=== PATIENT | male | born 1945 | race Caucasian/White ===

== ENCOUNTER 2017-03-04 07:43 | Outpatient (CLI) | payer MEDICARE ==
[2017-03-04 08:39] LABS: ALT (SGPT) 23 U/L (8-55); AST (SGOT) 47 U/L (5-34); Albumin 3.9 g/dL (3.4-4.8); Alkaline Phosphatase 76 U/L (40-150); Anion Gap 13 mmol/L (10-20); BUN (Urea Nitrogen) 12 mg/dL (8.4-25.7); Bilirubin, Direct 0.3 mg/dL (0.1-0.3); Bilirubin, Total 0.7 mg/dL (0.2-1.2); Calc. Creatinine Clearance 0 mL/min (70-130); Carbon Dioxide 25 mmol/L (23-31); Cardiac Risk 2.8 (Less than 4.5); Chloride 106 mmol/L (98-107); Cholesterol 145 mg/dl (< 200 Desired); Estimated GFR-MDRD 84; Glucose 96 mg/dL (83-110); HDL Cholesterol 52 mg/dL (>60 Neg Risk); LDL Cholesterol, Calculated 42 mg/dL; Potassium 4.1 mmol/L (3.5-5.1); Protein, Total 7.2 g/dL (5.8-8.1); Sodium 140 mmol/L (136-145); Triglycerides 254 mg/dL (Less than 150)
[2017-03-04 11:29] LABS: Anisocytosis SLIGHT = 6-15 cells (100X) (0-5/hpf); Band 2 % (5-11); Eosinophils 2 % (0-10); Lymphocytes 32 % (21-51); MDiff Complete? YES; Macrocytosis SLIGHT = 6-15 cells (100X) (0-5/hpf); Mean Corpuscular HGB CONC 34.1 g/dL (32.0-36.0); Mean Corpuscular Hemoglobin 37.2 pg (27.0-31.0); Mean Corpuscular Volume 109.2 fl (80.0-94.0); Mean Platelet Volume 9.3 fL (7.4-10.4); Monocytes 6 % (0-10); Neutrophil 58 % (42-75); Platelet Count 161 thou/uL (130-400); RBC Distribution Width 13.1 % (11.5-14.5); Red Blood Cell (RBC) Count 4.29 mill/uL (4.70-6.10)
== END 2017-03-04 07:44 | disposition home or self-care (01) ==
LOC: MADLABBHPM 07:43
PROVIDERS: ATTEND Family Medicine
DX: E78.5 Hyperlipidemia, unspecified (principal); I10 Essential (primary) hypertension; M19.91 Primary osteoarthritis, unspecified site
CPT/HCPCS: 36415; 80048; 80061; 80076; 84443; 85025

== ENCOUNTER 2021-05-28 14:32 | Inpatient (IN) | payer MEDICARE, SELFPAY ==
[2021-05-28] MEDS ORDERED: Nystatin Powder 15 GM BOT TOP PRN (20:04)
[2021-05-28] MEDS ORDERED: Cyclobenzaprine 10 MG TAB PO PRN (20:21)
[2021-05-28] MEDS: Gabapentin 300 MG CAP PO SCH (21:04)
[2021-05-28] MEDS: hydrALAZINE 25 MG TAB PO SCH (21:06)
[2021-05-28] MEDS: Rosuvastatin 10 MG TAB PO SCH (21:06)
[2021-05-28] MEDS: Apixaban 5 MG TAB PO SCH (21:06)
[2021-05-28] MEDS: Metoprolol Tartrate 25 MG TAB PO SCH (21:06)
[2021-05-28] MEDS: Transdermal Patch Removal TOP SCH (21:07)
[2021-05-28 21:14] LABS: SARS-CoV-2 NAA Rapid Test Not Detected (NotDetected)
[2021-05-29 05:48] LABS: ALT (SGPT) 14 U/L (8-55); AST (SGOT) 48 U/L (5-34); Albumin 2.7 g/dL (3.4-4.8); Alkaline Phosphatase 89 U/L (40-110); Anion Gap 12 mmol/L (10-20); BUN (Urea Nitrogen) 12 mg/dL (8.4-25.7); Bilirubin, Total 0.5 mg/dL (0.2-1.2); Calc. Creatinine Clearance 102 mL/min (70-130); Calcium 8.8 mg/dL (7.8-10.44); Carbon Dioxide 29 mmol/L (23-31); Chloride 105 mmol/L (98-107); Globulin 3.9 g/dL (2.4-3.5); Glucose 95 mg/dL (83-110); Protein, Total 6.6 g/dL (5.8-8.1); Sodium 142 mmol/L (136-145)
[2021-05-29 05:51] LABS: #Basophils 0.1 thou/uL (0.0-0.2); #Eosinphils 0.2 thou/uL (0.0-0.7); #Lymphocytes 2.1 thou/uL (1.20-3.40); #Monocytes 0.7 thou/uL (0.11-0.59); #Neutrophils 3.2 thou/uL (1.40-6.50); %Eosinophils 3.6 % (0.0-10.0); %Lymphocytes 33.1 % (21.0-51.0); %Monocytes 11.3 % (0.0-10.0); Hemoglobin 11.8 g/dL (14.0-18.0); MDiff Complete? YES; Macrocytosis MODERATE=16-30 cells (100X) (0-5/hpf); Mean Corpuscular HGB CONC 30.8 g/dL (32.0-36.0); Mean Corpuscular Hemoglobin 34.9 pg (27.0-31.0); Mean Corpuscular Volume 113.2 fL (78.0-98.0); Mean Platelet Volume 8.2 fL (7.4-10.4); Platelet Count 266 thou/uL (130-400); RBC Distribution Width 13.6 % (11.5-14.5); Red Blood Cell (RBC) Count 3.38 mill/uL (4.70-6.10); Stomatocytes SLIGHT = 2-5 cells (100X) (0-1/hpf); White Blood Cell (WBC) Count 6.3 thou/uL (4.8-10.8)
[2021-05-29] MEDS: Folic Acid 1 MG TAB PO SCH (08:06)
[2021-05-29] MEDS: Metoprolol Tartrate 25 MG TAB PO SCH ×2 (08:06→21:36)
[2021-05-29] MEDS: Aspirin 81 mg Enteric Coated Tablet PO SCH (08:08)
[2021-05-29] MEDS: Apixaban 5 MG TAB PO SCH ×2 (08:08→21:36)
[2021-05-29] MEDS: Gabapentin 300 MG CAP PO SCH ×3 (08:08→21:35)
[2021-05-29] MEDS: hydrALAZINE 25 MG TAB PO SCH ×2 (08:09→21:35)
[2021-05-29] MEDS: Thiamine 100 MG TAB PO SCH (08:09)
[2021-05-29] MEDS: Losartan Potassium 50 MG TAB PO SCH (08:09)
[2021-05-29] MEDS: Amlodipine 5 MG TAB PO SCH (08:09)
[2021-05-29] MEDS: Multivit, Therapeutic 1 TAB PO SCH (08:10)
[2021-05-29] MEDS: Lidocaine 5% Patch TD SCH (08:12)
[2021-05-29] MEDS: Rosuvastatin 10 MG TAB PO SCH (21:36)
[2021-05-29] MEDS: Transdermal Patch Removal TOP SCH (21:37)
[2021-05-30] MEDS: Thiamine 100 MG TAB PO SCH (09:40)
[2021-05-30] MEDS: Losartan Potassium 50 MG TAB PO SCH (09:41)
[2021-05-30] MEDS: Gabapentin 300 MG CAP PO SCH ×4 (09:41→20:12)
[2021-05-30] MEDS: Aspirin 81 mg Enteric Coated Tablet PO SCH (09:42)
[2021-05-30] MEDS: Metoprolol Tartrate 25 MG TAB PO SCH ×2 (09:42→20:12)
[2021-05-30] MEDS: Amlodipine 5 MG TAB PO SCH (09:42)
[2021-05-30] MEDS: Folic Acid 1 MG TAB PO SCH (09:42)
[2021-05-30] MEDS: Apixaban 5 MG TAB PO SCH ×2 (09:42→20:13)
[2021-05-30] MEDS: Multivit, Therapeutic 1 TAB PO SCH (09:42)
[2021-05-30] MEDS: Lidocaine 5% Patch TD SCH (09:43)
[2021-05-30] MEDS: Transdermal Patch Removal TOP SCH (20:11)
[2021-05-30] MEDS: Rosuvastatin 10 MG TAB PO SCH (20:13)
[2021-05-31] MEDS: Multivit, Therapeutic 1 TAB PO SCH (09:50)
[2021-05-31] MEDS: Aspirin 81 mg Enteric Coated Tablet PO SCH (09:50)
[2021-05-31] MEDS: Gabapentin 300 MG CAP PO SCH ×3 (09:50→21:11)
[2021-05-31] MEDS: Lidocaine 5% Patch TD SCH (09:50)
[2021-05-31] MEDS: Apixaban 5 MG TAB PO SCH ×2 (09:50→21:11)
[2021-05-31] MEDS: Folic Acid 1 MG TAB PO SCH (09:50)
[2021-05-31] MEDS: Amlodipine 5 MG TAB PO SCH (09:51)
[2021-05-31] MEDS: Thiamine 100 MG TAB PO SCH (09:51)
[2021-05-31] MEDS: Metoprolol Tartrate 25 MG TAB PO SCH ×2 (09:51→21:12)
[2021-05-31 10:55] VITALS: BMI 43.5
[2021-05-31] MEDS: Losartan Potassium 50 MG TAB PO SCH (12:03)
[2021-05-31] MEDS: Rosuvastatin 10 MG TAB PO SCH (21:13)
[2021-05-31] MEDS: Transdermal Patch Removal TOP SCH (21:15)
[2021-06-01] MEDS: Apixaban 5 MG TAB PO SCH ×2 (08:05→20:32)
[2021-06-01] MEDS: Amlodipine 5 MG TAB PO SCH (08:05)
[2021-06-01] MEDS: Thiamine 100 MG TAB PO SCH (08:05)
[2021-06-01] MEDS: Multivit, Therapeutic 1 TAB PO SCH (08:05)
[2021-06-01] MEDS: Aspirin 81 mg Enteric Coated Tablet PO SCH (08:06)
[2021-06-01] MEDS: Folic Acid 1 MG TAB PO SCH (08:06)
[2021-06-01] MEDS: Gabapentin 300 MG CAP PO SCH ×3 (08:06→20:32)
[2021-06-01] MEDS: Metoprolol Tartrate 25 MG TAB PO SCH ×2 (08:06→20:32)
[2021-06-01] MEDS: Losartan Potassium 50 MG TAB PO SCH (10:59)
[2021-06-01] MEDS: Lidocaine 5% Patch TD SCH (11:01)
[2021-06-01] MEDS: Rosuvastatin 10 MG TAB PO SCH (20:32)
[2021-06-01] MEDS: Transdermal Patch Removal TOP SCH (20:33)
[2021-06-02] MEDS: Multivit, Therapeutic 1 TAB PO SCH (09:16)
[2021-06-02] MEDS: Folic Acid 1 MG TAB PO SCH (09:16)
[2021-06-02] MEDS: Metoprolol Tartrate 25 MG TAB PO SCH ×2 (09:16→20:43)
[2021-06-02] MEDS: Thiamine 100 MG TAB PO SCH (09:16)
[2021-06-02] MEDS: Gabapentin 300 MG CAP PO SCH ×3 (09:16→20:40)
[2021-06-02] MEDS: Apixaban 5 MG TAB PO SCH ×2 (09:16→20:40)
[2021-06-02] MEDS: Amlodipine 5 MG TAB PO SCH (09:16)
[2021-06-02] MEDS: Aspirin 81 mg Enteric Coated Tablet PO SCH (09:16)
[2021-06-02] MEDS: Lidocaine 5% Patch TD SCH (09:17)
[2021-06-02] MEDS: Losartan Potassium 50 MG TAB PO SCH (12:20)
[2021-06-02] MEDS: Rosuvastatin 10 MG TAB PO SCH (20:42)
[2021-06-02] MEDS: Transdermal Patch Removal TOP SCH (20:44)
[2021-06-03] MEDS: Amlodipine 5 MG TAB PO SCH (08:30)
[2021-06-03] MEDS: Multivit, Therapeutic 1 TAB PO SCH (08:30)
[2021-06-03] MEDS: Apixaban 5 MG TAB PO SCH ×2 (08:30→21:12)
[2021-06-03] MEDS: Thiamine 100 MG TAB PO SCH (08:30)
[2021-06-03] MEDS: Folic Acid 1 MG TAB PO SCH (08:30)
[2021-06-03] MEDS: Aspirin 81 mg Enteric Coated Tablet PO SCH (08:30)
[2021-06-03] MEDS: Metoprolol Tartrate 25 MG TAB PO SCH ×2 (08:30→21:13)
[2021-06-03] MEDS: Lidocaine 5% Patch TD SCH (08:31)
[2021-06-03] MEDS: Gabapentin 300 MG CAP PO SCH ×3 (08:31→21:12)
[2021-06-03] MEDS: Losartan Potassium 50 MG TAB PO SCH (11:39)
[2021-06-03] MEDS: Rosuvastatin 10 MG TAB PO SCH (21:14)
[2021-06-03] MEDS: Transdermal Patch Removal TOP SCH (21:22)
[2021-06-04] MEDS ORDERED: Lidocaine 5% Patch TD PRN (08:11)
[2021-06-04] MEDS: Losartan Potassium 50 MG TAB PO SCH (08:43)
[2021-06-04] MEDS: Gabapentin 300 MG CAP PO SCH ×3 (08:43→20:07)
[2021-06-04] MEDS: Apixaban 5 MG TAB PO SCH ×2 (08:43→20:06)
[2021-06-04] MEDS: Aspirin 81 mg Enteric Coated Tablet PO SCH (08:43)
[2021-06-04] MEDS: Multivit, Therapeutic 1 TAB PO SCH (08:44)
[2021-06-04] MEDS: Metoprolol Tartrate 25 MG TAB PO SCH ×2 (08:44→20:07)
[2021-06-04] MEDS: Amlodipine 5 MG TAB PO SCH (08:44)
[2021-06-04] MEDS: Acetaminophen 325 MG TAB PO PRN (08:45)
[2021-06-04] MEDS: Folic Acid 1 MG TAB PO SCH (08:45)
[2021-06-04] MEDS: Thiamine 100 MG TAB PO SCH (08:45)
[2021-06-04] MEDS: Rosuvastatin 10 MG TAB PO SCH (20:06)
[2021-06-04] MEDS: Transdermal Patch Removal TOP SCH (20:08)
[2021-06-05 05:29] LABS: Hemoglobin 12.1 g/dL (14.0-18.0); Platelet Count 273 thou/uL (130-400)
[2021-06-05] MEDS: Aspirin 81 mg Enteric Coated Tablet PO SCH (09:32)
[2021-06-05] MEDS: Metoprolol Tartrate 25 MG TAB PO SCH ×2 (09:33→21:14)
[2021-06-05] MEDS: Folic Acid 1 MG TAB PO SCH (09:33)
[2021-06-05] MEDS: Thiamine 100 MG TAB PO SCH (09:33)
[2021-06-05] MEDS: Amlodipine 5 MG TAB PO SCH (09:33)
[2021-06-05] MEDS: Gabapentin 300 MG CAP PO SCH ×3 (09:33→21:14)
[2021-06-05] MEDS: Apixaban 5 MG TAB PO SCH ×2 (09:33→21:14)
[2021-06-05] MEDS: Losartan Potassium 50 MG TAB PO SCH (09:33)
[2021-06-05] MEDS: Multivit, Therapeutic 1 TAB PO SCH (09:33)
[2021-06-05] MEDS: Acetaminophen 325 MG TAB PO PRN ×2 (16:11→21:15)
[2021-06-05] MEDS: Rosuvastatin 10 MG TAB PO SCH (21:15)
[2021-06-05] MEDS: Transdermal Patch Removal TOP SCH (21:15)
[2021-06-06] MEDS: Gabapentin 300 MG CAP PO SCH ×3 (09:18→21:01)
[2021-06-06] MEDS: Aspirin 81 mg Enteric Coated Tablet PO SCH (09:18)
[2021-06-06] MEDS: Multivit, Therapeutic 1 TAB PO SCH (09:19)
[2021-06-06] MEDS: Losartan Potassium 50 MG TAB PO SCH (09:19)
[2021-06-06] MEDS: Amlodipine 5 MG TAB PO SCH (09:19)
[2021-06-06] MEDS: Folic Acid 1 MG TAB PO SCH (09:19)
[2021-06-06] MEDS: Apixaban 5 MG TAB PO SCH ×2 (09:20→21:01)
[2021-06-06] MEDS: Metoprolol Tartrate 25 MG TAB PO SCH ×2 (09:20→21:01)
[2021-06-06] MEDS: Thiamine 100 MG TAB PO SCH (09:20)
[2021-06-06 12:26] LABS: SARS-CoV-2 PCR by NAA Not Detected (NotDetected)
[2021-06-06] MEDS: Acetaminophen 325 MG TAB PO PRN (21:02)
[2021-06-06] MEDS: Rosuvastatin 10 MG TAB PO SCH (21:02)
[2021-06-06] MEDS: Transdermal Patch Removal TOP SCH (21:12)
[2021-06-07] MEDS: Multivit, Therapeutic 1 TAB PO SCH (08:43)
[2021-06-07] MEDS: Apixaban 5 MG TAB PO SCH ×2 (08:43→20:23)
[2021-06-07] MEDS: Gabapentin 300 MG CAP PO SCH ×3 (08:43→20:24)
[2021-06-07] MEDS: Amlodipine 5 MG TAB PO SCH (08:43)
[2021-06-07] MEDS: Folic Acid 1 MG TAB PO SCH (08:44)
[2021-06-07] MEDS: Aspirin 81 mg Enteric Coated Tablet PO SCH (08:44)
[2021-06-07] MEDS: Metoprolol Tartrate 25 MG TAB PO SCH ×2 (08:44→20:25)
[2021-06-07] MEDS: Losartan Potassium 50 MG TAB PO SCH (08:44)
[2021-06-07] MEDS: Thiamine 100 MG TAB PO SCH (08:44)
[2021-06-07] MEDS: Rosuvastatin 10 MG TAB PO SCH (20:27)
[2021-06-07] MEDS: Transdermal Patch Removal TOP SCH (20:28)
[2021-06-08 07:51] VITALS: TEMP 97.8
[2021-06-08] MEDS: Gabapentin 300 MG CAP PO SCH (10:19)
[2021-06-08] MEDS: Aspirin 81 mg Enteric Coated Tablet PO SCH (10:19)
[2021-06-08] MEDS: Folic Acid 1 MG TAB PO SCH (10:19)
[2021-06-08] MEDS: Multivit, Therapeutic 1 TAB PO SCH (10:19)
[2021-06-08] MEDS: Amlodipine 5 MG TAB PO SCH (10:19)
[2021-06-08] MEDS: Metoprolol Tartrate 25 MG TAB PO SCH (10:20)
[2021-06-08] MEDS: Apixaban 5 MG TAB PO SCH (10:20)
[2021-06-08] MEDS: Thiamine 100 MG TAB PO SCH (10:20)
[2021-06-08] MEDS: Losartan Potassium 50 MG TAB PO SCH (10:21)
[2021-06-08 14:17] VITALS: BP 117/80
== END 2021-06-08 15:18 | disposition home health service (06) | DRG 947 ==
LOC: MADMS 16:17
PROVIDERS: ADMIT Family Medicine; ATTEND Family Medicine
DX: R53.81 Other malaise (principal); I26.99 Other pulmonary embolism without acute cor pulmonale; Z68.41 Body mass index [BMI] 40.0-44.9, adult; I82.401 Acute embolism and thrombosis of unspecified deep veins of right lower extremity; N18.2 Chronic kidney disease, stage 2 (mild); E66.9 Obesity, unspecified; Z96.653 Presence of artificial knee joint, bilateral; E78.5 Hyperlipidemia, unspecified; I12.9 Hypertensive chronic kidney disease with stage 1 through stage 4 chronic kidney disease, or unspecified chronic kidney disease; G62.9 Polyneuropathy, unspecified; Z20.822 Contact with and (suspected) exposure to COVID-19; K21.9 Gastro-esophageal reflux disease without esophagitis; Z79.01 Long term (current) use of anticoagulants; Z79.899 Other long term (current) drug therapy; Z79.82 Long term (current) use of aspirin; Z88.8 Allergy status to other drugs, medicaments and biological substances
CPT/HCPCS: 36415; 80053; 85014; 85018; 85025; 85049; U0002; U0003; U0005

== ENCOUNTER 2021-06-21 16:34 | Outpatient (CLI) | payer MEDICARE ==
[2021-06-21 17:04] LABS: ALT (SGPT) 10 U/L (8-55); AST (SGOT) 28 U/L (5-34); Albumin 3.5 g/dL (3.4-4.8); Alkaline Phosphatase 84 U/L (40-110); Anion Gap 15 mmol/L (10-20); BUN (Urea Nitrogen) 17 mg/dL (8.4-25.7); Bilirubin, Total 0.3 mg/dL (0.2-1.2); Calc. Creatinine Clearance 0 mL/min (70-130); Calcium 9.2 mg/dL (7.8-10.44); Carbon Dioxide 22 mmol/L (23-31); Chloride 106 mmol/L (98-107); Globulin 3.3 g/dL (2.4-3.5); Glucose 96 mg/dL (83-110); Potassium 4.9 mmol/L (3.5-5.1); Protein, Total 6.8 g/dL (5.8-8.1); Sodium 138 mmol/L (136-145)
[2021-06-21 17:11] LABS: #Basophils 0.1 thou/uL (0.0-0.2); #Eosinphils 0.5 thou/uL (0.0-0.7); #Monocytes 0.9 thou/uL (0.11-0.59); #Neutrophils 4.3 thou/uL (1.40-6.50); %Basophils 1.5 % (0.0-1.0); %Eosinophils 6.4 % (0.0-10.0); %Lymphocytes 25.1 % (21.0-51.0); %Monocytes 11.4 % (0.0-10.0); %Neutrophils 55.6 % (42.0-75.0); Hemoglobin 13.5 g/dL (14.0-18.0); Mean Corpuscular HGB CONC 31.6 g/dL (32.0-36.0); Mean Corpuscular Hemoglobin 34.6 pg (27.0-31.0); Mean Corpuscular Volume 109.3 fL (78.0-98.0); Mean Platelet Volume 8.1 fL (7.4-10.4); Platelet Count 228 thou/uL (130-400); RBC Distribution Width 12.5 % (11.5-14.5); White Blood Cell (WBC) Count 7.8 thou/uL (4.8-10.8)
[2021-06-21 17:12] LABS: Anisocytosis SLIGHT = 6-15 cells (100X) (0-5/hpf); MDiff Complete? YES; Macrocytosis SLIGHT = 6-15 cells (100X) (0-5/hpf); Platelet Morphology Comment Appears Adequate
== END 2021-06-21 16:35 | disposition home or self-care (01) ==
LOC: MADLAB 16:34
PROVIDERS: ATTEND Family Medicine
DX: I82.411 Acute embolism and thrombosis of right femoral vein (principal); I82.441 Acute embolism and thrombosis of right tibial vein
CPT/HCPCS: 80053; 85025

== ENCOUNTER 2022-10-01 12:23 | Emergency (ER) | payer MEDICARE ==
[~2022-10-01 12:23] MED LIST: Iopamidol 370 76% 125 ML VIAL FS ONE
[2022-10-01 14:28] LABS: #Basophils 0.1 thou/uL (0.0-0.2); #Eosinphils 0.3 thou/uL (0.0-0.7); #Lymphocytes 1.4 thou/uL (1.20-3.40); #Monocytes 0.6 thou/uL (0.11-0.59); #Neutrophils 4.1 thou/uL (1.40-6.50); %Eosinophils 4.8 % (0.0-10.0); %Monocytes 9.3 % (0.0-10.0); Anisocytosis SLIGHT = 6-15 cells (100X) (0-5/hpf); Hemoglobin 15.4 g/dL (14.0-18.0); MDiff Complete? YES; Macrocytosis SLIGHT = 6-15 cells (100X) (0-5/hpf); Mean Corpuscular HGB CONC 31.2 g/dL (32.0-36.0); Mean Corpuscular Hemoglobin 34.8 pg (27.0-31.0); Mean Corpuscular Volume 111.5 fl (78.0-98.0); Mean Platelet Volume 8.7 fL (7.4-10.4); Platelet Count 142 10x3/uL (130-400); Platelet Morphology Comment Appears Adequate; Red Blood Cell (RBC) Count 4.42 mill/uL (4.70-6.10); White Blood Cell (WBC) Count 6.5 10x3/uL (4.8-10.8)
[2022-10-01 14:36] LABS: ALT (SGPT) Less than 7 U/L (8-55); AST (SGOT) 19 U/L (5-34); Albumin 3.8 g/dL (3.4-4.8); Alkaline Phosphatase 84 U/L (40-110); Anion Gap 11 mmol/L (10-20); BUN (Urea Nitrogen) 12 mg/dL (8.4-25.7); Bilirubin, Total 1.1 mg/dL (0.2-1.2); Calc. Creatinine Clearance 0 mL/min (70-130); Calcium 9.2 mg/dL (7.8-10.44); Carbon Dioxide 33 mmol/L (23-31); Chloride 102 mmol/L (98-107); Estimated GFR 48; Globulin 4.2 g/dL (2.4-3.5); Glucose 100 mg/dL (83-110); Lipase 24 U/L (8-78); Potassium 4.1 mmol/L (3.5-5.1); Sodium 142 mmol/L (136-145)
== END 2022-10-01 16:37 | disposition home or self-care (01) ==
LOC: MADERS 12:23
DX: J44.9 Chronic obstructive pulmonary disease, unspecified (principal); I26.99 Other pulmonary embolism without acute cor pulmonale; G47.30 Sleep apnea, unspecified; K21.9 Gastro-esophageal reflux disease without esophagitis; E78.00 Pure hypercholesterolemia, unspecified; I10 Essential (primary) hypertension; Z87.891 Personal history of nicotine dependence; Z79.899 Other long term (current) drug therapy; Z79.82 Long term (current) use of aspirin
CPT/HCPCS: 71045; 71275; 80053; 83690; 83880; 84484; 85025; 85379; 93005; 94640; 94760; J7620; Q9967

== ENCOUNTER 2022-10-21 09:42 | Emergency (ER) | payer MEDICARE ==
[2022-10-21 11:06] LABS: #Basophils 0.1 thou/uL (0.0-0.2); #Eosinphils 0.3 thou/uL (0.0-0.7); #Lymphocytes 1.2 thou/uL (1.20-3.40); #Monocytes 0.9 thou/uL (0.11-0.59); #Neutrophils 4.5 thou/uL (1.40-6.50); %Eosinophils 4.7 % (0.0-10.0); %Lymphocytes 16.6 % (21.0-51.0); %Monocytes 12.4 % (0.0-10.0); %Neutrophils 65.3 % (42.0-75.0); Hemoglobin 14.9 g/dL (14.0-18.0); Mean Corpuscular HGB CONC 31.5 g/dL (32.0-36.0); Mean Corpuscular Volume 111.1 fl (78.0-98.0); Mean Platelet Volume 9.5 fL (7.4-10.4); Platelet Count 136 10x3/uL (130-400); RBC Distribution Width 13.6 % (11.5-14.5); Red Blood Cell (RBC) Count 4.26 mill/uL (4.70-6.10); White Blood Cell (WBC) Count 6.9 10x3/uL (4.8-10.8)
[2022-10-21 11:08] LABS: INR-International Normal Ratio 1.6; Prothrombin Time 19.3 sec (12.0-14.7)
[2022-10-21 11:09] LABS: PTT 36.9 sec (22.9-36.1)
[2022-10-21 11:20] LABS: ALT (SGPT) 8 U/L (8-55); AST (SGOT) 18 U/L (5-34); Albumin 3.8 g/dL (3.4-4.8); Alkaline Phosphatase 83 U/L (40-110); Anion Gap 12 mmol/L (10-20); BUN (Urea Nitrogen) 14 mg/dL (8.4-25.7); Bilirubin, Total 1.1 mg/dL (0.2-1.2); CK (CPK) 46 U/L (30-200); Calc. Creatinine Clearance 0 mL/min (70-130); Calcium 9.4 mg/dL (7.8-10.44); Carbon Dioxide 34 mmol/L (23-31); Chloride 102 mmol/L (98-107); Estimated GFR 44; Globulin 3.9 g/dL (2.4-3.5); Glucose 101 mg/dL (83-110); Lipase 40 U/L (8-78); Magnesium 1.7 mg/dL (1.6-2.6); Potassium 4.4 mmol/L (3.5-5.1); Protein, Total 7.7 g/dL (5.8-8.1); Sodium 144 mmol/L (136-145)
[2022-10-21] MEDS ORDERED: Furosemide 40 MG/4 ML VIAL ONE (15:31)
== END 2022-10-21 19:52 | disposition short-term general hospital (02) ==
LOC: MADERS 09:42
DX: I11.0 Hypertensive heart disease with heart failure (principal); I50.9 Heart failure, unspecified; N28.9 Disorder of kidney and ureter, unspecified; J90 Pleural effusion, not elsewhere classified; J81.1 Chronic pulmonary edema; I44.0 Atrioventricular block, first degree; K21.9 Gastro-esophageal reflux disease without esophagitis; E78.00 Pure hypercholesterolemia, unspecified; J44.9 Chronic obstructive pulmonary disease, unspecified; G62.9 Polyneuropathy, unspecified; G47.30 Sleep apnea, unspecified; Z86.711 Personal history of pulmonary embolism; Z86.718 Personal history of other venous thrombosis and embolism; Z87.891 Personal history of nicotine dependence; Z79.82 Long term (current) use of aspirin; Z79.01 Long term (current) use of anticoagulants; Z79.899 Other long term (current) drug therapy
CPT/HCPCS: 71046; 71275; 80053; 82550; 83605; 83690; 83735; 83880; 84484; 85025; 85379; 85610; 85730; 93005; 96374; J1940; Q9967